=== PATIENT | female | born 1970 | race Hispanic/Latino ===

== ENCOUNTER 2016-11-10 21:05 | Emergency (ER) | payer SELFPAY ==
[2016-11-10 21:26] VITALS: BP 144/87; PULSE 64; RESP 20; TEMP 97.7; O2SAT 100
[2016-11-10] MEDS ORDERED: Iohexol 240 (50 ml) PO ONE (22:03)
--- NOTE | 2016-11-10 22:06 | ED PDOC ---
HPI: General Adult Time Seen by Provider: 11/10/16 21:54 Chief Complaint (Nursing): GI Problem Chief Complaint (Provider): dizziness, vomiting, abd pain History Per: Patient History/Exam Limitations: no limitations Onset/Duration Of Symptoms: Hrs Current Symptoms Are (Timing): Still Present Additional History Per: Patient Additional Complaint(s): 46 y/o female history of bipolar, fibromyaglia, migraine headaches and "fluid on the brain" presents with intermittent dizziness, nausea, and abdominal pain x 3 days. Associated vomiting x 1 today. Patient states [facility], and is unsure if this is related to the food she ate there vs her fibromyalgia vs her migraine headache flare up. She states she was told she had "water on the brain" in an emergency room in [place] in July, but never followed up with it. She notes dizziness present only with walking. Denies fever, neck pain, extremity numbness/weakness, chest pain, shortness of breath, palpitations, changes in bowel movements, urinary symptoms. Past Medical History Reviewed: Historical Data, Nursing Documentation Vital Signs: Last Vital Signs Temp 97.7 F 11/10/16 21:20 Pulse 64 11/10/16 21:20 Resp 20 11/10/16 21:20 BP 144/87 11/10/16 21:20 Pulse Ox 100 11/10/16 22:07 - Medical History PMH: Bipolar Disorder Other PMH: fibromyalgia - Family History Family History: States: Unknown Family Hx - Home Medications Home Medications: Ambulatory Orders Medication Instructions Recorded Ondansetron ODT [Zofran ODT] 4 mg PO Q8 PRN #10 odt 11/11/16 - Allergies Allergies/Adverse Reactions: Allergies Allergy/AdvReac Type Severity Reaction Status Date / Time haloperidol [From Haldol] AdvReac RASH Verified 11/10/16 21:23 Penicillins AdvReac RASH Verified 11/10/16 21:23 pseudoephedrine AdvReac RASH Verified 11/10/16 21:23 [From Sudafed] risperidone [From Risperdal] AdvReac RASH Verified 11/10/16 21:23 Review of Systems ROS Statement: Except As Marked, All Systems Reviewed And Found Negative Gastrointestinal: Positive for: Nausea, Vomiting, Abdominal Pain Neurological: Positive for: Dizziness Physical Exam - Reviewed Nursing Documentation Reviewed: Yes Vital Signs Reviewed: Yes - Physical Exam Appears: Positive for: Well, Non-toxic, No Acute Distress Head Exam: Positive for: ATRAUMATIC, NORMAL INSPECTION, NORMOCEPHALIC Eye Exam: Positive for: EOMI, PERRL, Nystagmus (horizontal) ENT: Positive for: Normal ENT Inspection Cardiovascular/Chest: Positive for: Regular Rate, Rhythm Respiratory: Positive for: Normal Breath Sounds Gastrointestinal/Abdominal: Positive for: Bowel Sounds, Soft, Tenderness ( diffuse) Back: Positive for: Normal Inspection Extremity: Positive for: Normal ROM Neurologic/Psych: Positive for: Alert, Oriented. Negative for: Motor/Sensory Deficits - Laboratory Results Result Diagrams: 11/10/16 22:57 11/10/16 22:57 - ECG O2 Sat by Pulse Oximetry: 100 - Progress ED Course And Treament: labs, urine, CT head, CT abd/pelvis, IV zofran, PO meclizine ordered EXAM: CT Abdomen and Pelvis With Intravenous Contrast CLINICAL HISTORY: 46 years old, female; Pain; Abdominal pain; Generalized; Additional info: Abd pain, vomiting TECHNIQUE: Axial computed tomography images of the abdomen and pelvis with intravenous contrast. This CT exam was performed using one or more of the following dose reduction techniques : automated exposure control, adjustment of the mA and/or kV according to patient size, and/ or use of iterative reconstruction technique. Coronal and sagittal reformatted images were created and reviewed. CONTRAST: 90 mL of [id number] administered intravenously. COMPARISON: No relevant prior studies available. FINDINGS: Limitations: Motion artifact - mild. Lower thorax: Minimal atelectasis. ABDOMEN: Liver: 1.5 x 1.4 x 1.5 cm enhancing lesion. Gallbladder and bile ducts: No calcified stones. No ductal dilation. Pancreas: No ductal dilation. No mass. Spleen: No splenomegaly. Adrenals: No mass. Kidneys and ureters: See below. Stomach and bowel: Underdistention of transverse colon. No definite mural thickening. No obstruction. Apparent mild mural thickening of few duodenal and jejunal loops. No associated inflammatory stranding. No obstruction. Appendix: Normal caliber. No inflammation. PELVIS: Bladder: Unremarkable. Reproductive: Unremarkable as visualized. ABDOMEN and PELVIS: Intraperitoneal space: No significant fluid collection. No free air. Bones/joints: No acute fracture. Soft tissues: Unremarkable. Vasculature: Circumaortic LEFT renal vein. No abdominal aortic aneurysm. Lymph nodes: No pathologically enlarged lymph nodes. IMPRESSION: 1. Possible mild enteritis. Clinical correlation is needed. 2. Liver lesion, indeterminate. Recommend nonemergent MRI. 3. Incidental/non-acute findings are described above. Addendum created by Rd Real MD on 11/11/2016 3:00 AM Eastern Time ([place] & [place]) THIS REPORT CONTAINS FINDINGS THAT MAY BE CRITICAL TO PATIENT CARE. The findings were verbally communicated via telephone conference with physician campus administrative assistant Ida Zhou PA-C at 3:00 AM EDT on 11/11/2016. The findings were acknowledged and understood. Initial Report created on 11/11/2016 2:56 AM Eastern Time ([place] & [place]) EXAM: CT Head Without Intravenous Contrast CLINICAL HISTORY: 46 years old, female; Signs and symptoms; Dizziness TECHNIQUE: Axial computed tomography images of the head/brain without intravenous contrast. This CT exam was performed using one or more of the following dose reduction techniques: automated exposure control, adjustment of the mA and/or kV according to patient size, and/or use of iterative reconstruction technique. Coronal and sagittal reformatted images were created and reviewed. COMPARISON: No relevant prior studies available. FINDINGS: Brain: Minimal atrophy. No intracranial hemorrhage. No mass. No definite edema. Ventricles: Moderately dilated out of proportion to sulci. Bones/joints: No acute fracture. Soft tissues: Unremarkable. Sinuses: No acute sinusitis. Mastoid air cells: No mastoid effusion. Orbits: Unremarkable as visualized. IMPRESSION: 1. Moderate hydrocephalus, uncertain chronicity. Compare with prior examinations if available. 2. Incidental/non-acute findings are described above. Case discussed with ED attending Dr. Acosta; who agrees with plan for outpatient neurology. Patient educated on findings, discharged with rx Zofran. Advised follow up neurology for hydrocephalus. Follow up PMD 2-3 days. Return to ED for worsening/concerning symptoms. Disposition - Clinical Impression Clinical Impression: Gastroenteritis, Hydrocephalus - Patient ED Disposition Is Patient to be Admitted: No Counseled Patient/Family Regarding: Studies Performed, Diagnosis, Need For Followup, Rx Given - Disposition Referrals: Aris Carranza MD [Medical Doctor] - [facility] [Outside] Disposition: Routine/Home Disposition Time: 03:07 Condition: IMPROVED Prescriptions: Ondansetron ODT [Zofran ODT] 4 mg PO Q8 PRN #10 odt PRN Reason: Nausea/Vomiting Instructions: Gastroenteritis (ED), Hydrocephalus (ED)
[2016-11-10] MEDS ORDERED: Iohexol 240 (50 ml) ONE (22:30)
[2016-11-10 22:48] LABS: RBC URINE 5 /hpf (0-3); URINE BACTERIA FEW (<OCC); URINE BILIRUBIN NEGATIVE (NEGATIVE); URINE BLOOD NEGATIVE (NEGATIVE); URINE COLOR YELLOW (YELLOW); URINE GLUCOSE (UA) NEG (Normal); URINE KETONE TRACE mg/dL (NEGATIVE); URINE LEUKOCYTE ESTERASE TRACE Leu/uL (Negative); URINE PROTEIN 30 mg/dL (NEGATIVE); URINE UROBILINOGEN 0.2-1.0 mg/dL (0.2-1.0); WBC URINE 2 /hpf (0-5)
[2016-11-10 23:02] LABS: BASO # 0.1 K/uL (0.0-0.2); BASO % 0.7 % (0.0-2.0); EOS # 0.3 K/uL (0.0-0.7); EOS % 3.4 % (0.0-4.0); HEMATOCRIT 32.5 % (34.0-47.0); LYMPH # 3.3 K/uL (1.0-4.3); MEAN CELL VOLUME 95.4 fl (81.0-99.0); MEAN CORPUSCULAR HEMOGLOBIN 31.7 pg (27.0-31.0); MEAN CORPUSCULAR HGB CONC 33.3 g/dL (33.0-37.0); MEAN PLATELET VOLUME 8.6 fl (7.2-11.7); MONO # 0.9 K/uL (0.0-0.8); MONO % 8.6 % (0.0-10.0); NEUT # 5.7 K/uL (1.8-7.0); NEUT % 55.3 % (50.0-75.0); RED CELL DISTRIBUTION WIDTH 13.3 % (11.5-14.5); WHITE BLOOD COUNT 10.3 K/uL (4.8-10.8)
[2016-11-10 23:12] LABS: ALB/GLOB RATIO 1.4 (1.0-2.1); BILIRUBIN,TOTAL 0.2 mg/dl (0.2-1.3); CALCIUM 9.2 mg/dL (8.4-10.2); POTASSIUM 4.1 MMOL/L (3.6-5.0); TOTAL PROTEIN 6.3 G/DL (6.3-8.2)
[2016-11-11] MEDS ORDERED: Iohexol 300 100 ML IJ ONE (02:23)
[2016-11-11] MEDS ORDERED: Sodium Chloride 0.9% 50 ML IV ONE (02:23)
--- NOTE | 2016-11-11 02:56 | CT ---
EXAM: CT Head Without Intravenous Contrast CLINICAL HISTORY: 46 years old, female; Signs and symptoms; Dizziness TECHNIQUE: Axial computed tomography images of the head/brain without intravenous contrast. This CT exam was performed using one or more of the following dose reduction techniques: automated exposure control, adjustment of the mA and/or kV according to patient size, and/or use of iterative reconstruction technique. Coronal and sagittal reformatted images were created and reviewed. COMPARISON: No relevant prior studies available. FINDINGS: Brain: Minimal atrophy. No intracranial hemorrhage. No mass. No definite edema. Ventricles: Moderately dilated out of proportion to sulci. Bones/joints: No acute fracture. Soft tissues: Unremarkable. Sinuses: No acute sinusitis. Mastoid air cells: No mastoid effusion. Orbits: Unremarkable as visualized. IMPRESSION: 1. Moderate hydrocephalus, uncertain chronicity. Compare with prior examinations if available. 2. Incidental/non-acute findings are described above.
--- NOTE | 2016-11-11 03:03 | CT ---
EXAM: CT Abdomen and Pelvis With Intravenous Contrast CLINICAL HISTORY: 46 years old, female; Pain; Abdominal pain; Generalized; Additional info: Abd pain, vomiting TECHNIQUE: Axial computed tomography images of the abdomen and pelvis with intravenous contrast. This CT exam was performed using one or more of the following dose reduction techniques: automated exposure control, adjustment of the mA and/or kV according to patient size, and/or use of iterative reconstruction technique. Coronal and sagittal reformatted images were created and reviewed. CONTRAST: 90 mL of [id number] administered intravenously. COMPARISON: No relevant prior studies available. FINDINGS: Limitations: Motion artifact - mild. Lower thorax: Minimal atelectasis. ABDOMEN: Liver: 1.5 x 1.4 x 1.5 cm enhancing lesion. Gallbladder and bile ducts: No calcified stones. No ductal dilation. Pancreas: No ductal dilation. No mass. Spleen: No splenomegaly. Adrenals: No mass. Kidneys and ureters: See below. Stomach and bowel: Underdistention of transverse colon. No definite mural thickening. No obstruction. Apparent mild mural thickening of few duodenal and jejunal loops. No associated inflammatory stranding. No obstruction. Appendix: Normal caliber. No inflammation. PELVIS: Bladder: Unremarkable. Reproductive: Unremarkable as visualized. ABDOMEN and PELVIS: Intraperitoneal space: No significant fluid collection. No free air. Bones/joints: No acute fracture. Soft tissues: Unremarkable. Vasculature: Circumaortic LEFT renal vein. No abdominal aortic aneurysm. Lymph nodes: No pathologically enlarged lymph nodes. IMPRESSION: 1. Possible mild enteritis. Clinical correlation is needed. 2. Liver lesion, indeterminate. Recommend nonemergent MRI. 3. Incidental/non-acute findings are described above.
== END 2016-11-11 04:15 | disposition home or self-care (01) ==
LOC: H.ER 21:05
DX: K52.9 Noninfective gastroenteritis and colitis, unspecified (principal); R42 Dizziness and giddiness; F31.9 Bipolar disorder, unspecified; M79.7 Fibromyalgia; Z88.0 Allergy status to penicillin; R10.9 Unspecified abdominal pain; G91.9 Hydrocephalus, unspecified; K76.89 Other specified diseases of liver
CPT/HCPCS: 70450; 74177; 80053; 81003; 81025; 83690; 85025; 96374; 99283; J2405; Q9966; Q9967

== ENCOUNTER 2016-11-23 21:21 | Emergency (ER) | payer SELFPAY ==
[2016-11-23 21:28] VITALS: RESP 16
--- NOTE | 2016-11-23 22:26 | ED PDOC ---
HPI: General Adult Time Seen by Provider: 11/23/16 22:03 Chief Complaint (Nursing): Abdominal Pain Chief Complaint (Provider): cough, abdominal pain History Per: Patient History/Exam Limitations: no limitations Onset/Duration Of Symptoms: Days (2 weeks), Waxing/Waning Current Symptoms Are (Timing): Still Present Additional History Per: Patient Additional Complaint(s): 46 y/o nondomiciled female presents with cough, congestion x 2 weeks. Patient states she was seen at [facility] and had xray and was prescirbed Zpak but she is not able to take Zpak due to adverse side effects, and that children's amoxicillin is the only thing that works for her. Patient also notes intermittent generalized abdominal cramping with diarrhea x weeks, which patient describes as "her normal", and that it is usually relieved with Pepto bismol. Denies fever, nausea/vomiting, chest pain, shortness of breath, palpitations, recent travel, sick contacts. Past Medical History Reviewed: Historical Data, Nursing Documentation, Vital Signs Vital Signs: Last Vital Signs Temp 98.6 F 11/24/16 01:45 Pulse 79 11/24/16 01:45 Resp 16 11/24/16 01:45 BP 122/78 11/24/16 01:45 Pulse Ox 98 11/24/16 01:45 - Medical History PMH: Bipolar Disorder, Fibromyalgia - Surgical History Surgical History: No Surg Hx - Family History Family History: States: Unknown Family Hx - Living Arrangements Living Arrangements: Alone - Home Medications Home Medications: Ambulatory Orders Medication Instructions Recorded Ondansetron ODT [Zofran ODT] 4 mg PO Q8 PRN #10 odt 11/11/16 Levofloxacin [Levaquin] 500 mg PO DAILY #7 tablet 11/24/16 - Allergies Allergies/Adverse Reactions: Allergies Allergy/AdvReac Type Severity Reaction Status Date / Time azithromycin Allergy RASH Verified 11/23/16 21:24 haloperidol [From Haldol] AdvReac RASH Verified 11/10/16 21:23 Penicillins AdvReac RASH Verified 11/10/16 21:23 pseudoephedrine AdvReac RASH Verified 11/10/16 21:23 [From Sudafed] risperidone [From Risperdal] AdvReac RASH Verified 11/10/16 21:23 Review of Systems ROS Statement: Except As Marked, All Systems Reviewed And Found Negative ENT: Positive for: Nose Congestion Respiratory: Positive for: Cough Gastrointestinal: Positive for: Diarrhea Physical Exam - Reviewed Nursing Documentation Reviewed: Yes Vital Signs Reviewed: Yes - Physical Exam Appears: Positive for: Well, Non-toxic, No Acute Distress Head Exam: Positive for: ATRAUMATIC, NORMAL INSPECTION, NORMOCEPHALIC Skin: Positive for: Normal Color Eye Exam: Positive for: Normal appearance ENT: Positive for: Nasal Congestion Cardiovascular/Chest: Positive for: Regular Rate, Rhythm Respiratory: Positive for: Normal Breath Sounds Gastrointestinal/Abdominal: Positive for: Normal Exam, Bowel Sounds, Soft Back: Positive for: Normal Inspection Extremity: Positive for: Normal ROM Neurologic/Psych: Positive for: Alert, Oriented - Laboratory Results Result Diagrams: 11/23/16 22:30 11/23/16 22:30 - ECG O2 Sat by Pulse Oximetry: 100 - Radiology X-Ray: Viewed By Ms X-Ray Interpretation: No Acute Disease - Progress ED Course And Treament: labs, urine, pepto bismul, chest xray Patient educated on findings, plan to discharged with rx Levaquin. Patient states she only wants liquid Amoxicillin. Patient advised that Amox not indicated for current diagnosis. Follow up PMD 2-3 days. Return to ED for worsening/concerning symptoms. Disposition - Clinical Impression Clinical Impression: UTI (urinary tract infection), Bronchitis - Patient ED Disposition Is Patient to be Admitted: No Counseled Patient/Family Regarding: Studies Performed, Diagnosis, Need For Followup, Rx Given - Disposition Referrals: [facility] [Outside] Disposition: Routine/Home Disposition Time: 01:12 Condition: IMPROVED Prescriptions: Levofloxacin [Levaquin] 500 mg PO DAILY #7 tablet Instructions: Urinary Tract Infection in Women (ED), Acute Bronchitis (ED)
[2016-11-23 22:49] LABS: ALB/GLOB RATIO 1.2 (1.0-2.1); ALKALINE PHOSPHATASE 64 U/L (38-126); ALT/SGPT 29 U/L (9-52); AST/SGOT 32 U/L (14-36); BASO # 0.1 K/uL (0.0-0.2); BASO % 0.7 % (0.0-2.0); BILIRUBIN,TOTAL 0.2 mg/dl (0.2-1.3); BLOOD UREA NITROGEN 13 mg/dl (7-17); CALCIUM 8.9 mg/dL (8.4-10.2); CARBON DIOXIDE 26 mmol/L (22-30); CHLORIDE 105 mmol/L (98-107); EOS # 0.1 K/uL (0.0-0.7); EOS % 0.9 % (0.0-4.0); GFR AFRICAN-AMERICAN > 60; GLUCOSE,RANDOM 110 mg/dL (65-105); HEMATOCRIT 30.9 % (34.0-47.0); LYMPH # 3.1 K/uL (1.0-4.3); LYMPH % 26.4 % (20.0-40.0); MEAN CORPUSCULAR HEMOGLOBIN 31.2 pg (27.0-31.0); MEAN CORPUSCULAR HGB CONC 32.8 g/dL (33.0-37.0); MEAN PLATELET VOLUME 8.4 fl (7.2-11.7); MONO % 16.9 % (0.0-10.0); NEUT # 6.4 K/uL (1.8-7.0); NEUT % 55.1 % (50.0-75.0); POTASSIUM 4.5 MMOL/L (3.6-5.0); RED CELL DISTRIBUTION WIDTH 13.1 % (11.5-14.5); SODIUM 140 mmol/l (132-148); TOTAL PROTEIN 6.7 G/DL (6.3-8.2); WHITE BLOOD COUNT 11.7 K/uL (4.8-10.8)
[2016-11-23] MEDS ORDERED: Bismuth Subsalicylate 262 mg/15 ml Sus (240 ml) ONE (22:52)
[2016-11-23] MEDS: Bismuth Subsalicylate 262 mg Chew Tab PO STA (23:05)
[2016-11-23 23:53] LABS: RBC URINE 4 /hpf (0-3); URINE BACTERIA OCC (<OCC); URINE BILIRUBIN NEGATIVE (NEGATIVE); URINE BLOOD NEGATIVE (NEGATIVE); URINE COLOR YELLOW (YELLOW); URINE GLUCOSE (UA) NEG (Normal); URINE KETONE TRACE mg/dL (NEGATIVE); URINE LEUKOCYTE ESTERASE LARGE Leu/uL (Negative); URINE PROTEIN NEGATIVE (NEGATIVE); WBC URINE 23 /hpf (0-5)
[2016-11-24 04:15] VITALS: BP 122/78; PULSE 79; TEMP 98.6
[2016-11-24 04:59] VITALS: O2SAT 100
--- NOTE | 2016-11-24 10:20 | RAD ---
HISTORY: cough COMPARISON: No prior. FINDINGS: LUNGS: Vague somewhat triangular-shaped opacity seen in the right medial lung base that could represent some atelectasis however of lower lobe infiltrate could be excluded with followup radiographs. . PLEURA: No significant pleural effusion identified, no pneumothorax apparent. CARDIOVASCULAR: Normal. OSSEOUS STRUCTURES: No significant abnormalities. VISUALIZED UPPER ABDOMEN: Normal. OTHER FINDINGS: None. IMPRESSION: Vague somewhat triangular-shaped opacity seen in the right medial lung base that could represent some atelectasis however of lower lobe infiltrate could be excluded with followup radiographs. .
== END 2016-11-24 01:45 | disposition home or self-care (01) ==
LOC: H.ER 21:21
DX: J40 Bronchitis, not specified as acute or chronic (principal); N39.0 Urinary tract infection, site not specified; R05 Cough

== ENCOUNTER 2016-12-31 14:37 | Emergency (ER) | payer MEDICAID ==
[2016-12-31 14:47] VITALS: O2SAT 98
[2016-12-31 16:05] LABS: BASO # 0.1 K/uL (0.0-0.2); BASO % 0.9 % (0.0-2.0); EOS # 0.6 K/uL (0.0-0.7); EOS % 7.6 % (0.0-4.0); HEMOGLOBIN 10.5 g/dL (12.0-16.0); LYMPH # 2.4 K/uL (1.0-4.3); MEAN CELL VOLUME 95.7 fl (81.0-99.0); MEAN CORPUSCULAR HEMOGLOBIN 31.5 pg (27.0-31.0); MEAN CORPUSCULAR HGB CONC 32.9 g/dL (33.0-37.0); MONO # 0.8 K/uL (0.0-0.8); MONO % 10.6 % (0.0-10.0); NEUT # 3.5 K/uL (1.8-7.0); NEUT % 47.9 % (50.0-75.0); RBC 3.35 Mil/uL (3.80-5.20); RED CELL DISTRIBUTION WIDTH 14.1 % (11.5-14.5); WHITE BLOOD COUNT 7.4 K/uL (4.8-10.8)
--- NOTE | 2016-12-31 16:34 | ED PDOC ---
HPI: Chest Pain Time Seen by Provider: 12/31/16 15:04 Chief Complaint (Nursing): Chest Pain Chief Complaint (Provider): Chest Pain History Per: Patient History/Exam Limitations: no limitations Onset/Duration Of Symptoms: Days (x3 days) Current Symptoms Are (Timing): Still Present Additional Complaint(s): 46 y/o female with a past medical history of bipolar disorder, fibromyalgia, rheumatoid arthritis and "water in the brain" who presents to the emergency department with a complaint of a constant right-sided chest pain that worsens with deep breaths about 30 minutes prior to arrival while at rest. Associated with shortness of breath, paresthesia to the right arm, and intermittent chronic headache. Reports a dry cough, and runny nose ongoing x3 days. Patient states it maybe a panic attack but feels worse than a usual panic attack. Denies focal weakness, blurry vision, change in headache, fever, leg swelling, immobilizations, or recent surgeries. Of note, patient says she has a history of "water in the brain" after a head CT scan was done due to frequent complaints of headache around October of this year in an emergency department in [place]. Patient was told she needed emergent surgery but refused. One month later in November, patient continued to experience headaches and had another Head CT completed in a different hospital in [place] and was told again the same results but refused to have surgery. PMD: None Past Medical History Reviewed: Historical Data, Nursing Documentation, Vital Signs Vital Signs: Last Vital Signs Temp 98.0 F 12/31/16 18:00 Pulse 75 12/31/16 18:00 Resp 16 12/31/16 18:00 BP 122/68 12/31/16 18:00 Pulse Ox 98 12/31/16 19:26 - Medical History PMH: Arthritis (Rheumatoid), Bipolar Disorder, Fibromyalgia Other PMH: "Water in the brain" (After severel Head CT in different hospitals) - Surgical History Surgical History: No Surg Hx - Family History Family History: States: Diabetes, Hypertension - Social History Current smoker - smoking cessation education provided: Yes (Heavy Smoker >10 Cigarettes Daily) Alcohol: None Drugs: Denies - Home Medications Home Medications: Ambulatory Orders Medication Instructions Recorded Ondansetron ODT [Zofran ODT] 4 mg PO Q8 PRN #10 odt 11/11/16 Levofloxacin [Levaquin] 500 mg PO DAILY #7 tablet 11/24/16 Cyclobenzaprine [Flexeril] 5 mg PO Q8 PRN #10 tab 12/31/16 Naproxen [Naprosyn] 1 tab PO BID PRN #60 tab 12/31/16 - Allergies Allergies/Adverse Reactions: Allergies Allergy/AdvReac Type Severity Reaction Status Date / Time azithromycin Allergy RASH Verified 11/23/16 21:24 haloperidol [From Haldol] AdvReac RASH Verified 11/10/16 21:23 Penicillins AdvReac RASH Verified 11/10/16 21:23 pseudoephedrine AdvReac RASH Verified 11/10/16 21:23 [From Sudafed] risperidone [From Risperdal] AdvReac RASH Verified 11/10/16 21:23 Review of Systems ROS Statement: Except As Marked, All Systems Reviewed And Found Negative Constitutional: Negative for: Fever Eyes: Negative for: Vision Change ENT: Positive for: Nose Discharge Cardiovascular: Positive for: Chest Pain (Right-sided) Respiratory: Positive for: Cough (Dry), Shortness of Breath Musculoskeletal: Positive for: Arm Pain (Paresthesia to the right arm). Negative for: Leg Pain (swelling or immobilizations of the legs bilaterally) Neurological: Positive for: Headache (Chronic intermittent headache; denies change in headache). Negative for: Weakness (Focal) Physical Exam - Reviewed Nursing Documentation Reviewed: Yes Vital Signs Reviewed: Yes - Physical Exam Appears: Positive for: Well, Non-toxic, No Acute Distress Head Exam: Positive for: ATRAUMATIC, NORMAL INSPECTION, NORMOCEPHALIC Skin: Positive for: Normal Color, Warm, Dry Eye Exam: Positive for: Normal appearance. Negative for: Conjunctival injection ENT: Positive for: Normal ENT Inspection. Negative for: Pharyngeal Erythema Neck: Positive for: Normal, Supple Cardiovascular/Chest: Positive for: Regular Rate, Rhythm, Other (Chest wall tenderness to the right anterior chest wall with no crepitus. No step off. ). Negative for: Chest Non Tender, Murmur Respiratory: Positive for: Normal Breath Sounds. Negative for: Accessory Muscle Use, Respiratory Distress Gastrointestinal/Abdominal: Positive for: Normal Exam, Soft. Negative for: Tenderness Extremity: Positive for: Normal ROM. Negative for: Pedal Edema Neurologic/Psych: Positive for: Alert, Oriented, Other (Speaking in full sentences.) - Laboratory Results Result Diagrams: 12/31/16 15:50 12/31/16 15:50 - ECG O2 Sat by Pulse Oximetry: 98 (RA) Pulse Ox Interpretation: Normal Medical Decision Making Medical Decision Making: Time: 15:25 Initial impression: Chest pain Initial plan: --Alcohol Serum STAT --B-Type Natriuretic Peptide --COMP Metabolic Panel --Drug Screen, Urine --Troponin I Stat --Valproic Acid STAT --ED Urine Dipstick (POC) --CBC w/ differential --D Dimer (COAG) --Chest Two Views (RAD) --Cyclobenzaprine 10 mg PO --Toradol 15 mg IV --Blood Culture STAT --IV Insertion CXR No acute findings, No inf/eff No clinically significant lab abnormalities Pt feeling better on reeval 7p. DW pt findings and plan of care. Stable for dc. Scribe Attestation: Documented by Guillermina Kerr, acting as a scribe for Amarilis Carbajal MD. Provider Scribe Attestation: All medical record entries made by the Scribe were at my direction and personally dictated by me. I have reviewed the chart and agree that the record accurately reflects my personal performance of the history, physical exam, medical decision making, and the department course for this patient. I have also personally directed, reviewed, and agree with the discharge instructions and disposition. Disposition - Clinical Impression Clinical Impression: Chest pain - Disposition Referrals: [facility] [Outside] - 01/03/17 Disposition: Routine/Home Disposition Time: 19:01 Condition: GOOD Prescriptions: Cyclobenzaprine [Flexeril] 5 mg PO Q8 PRN #10 tab PRN Reason: muscle spasm Naproxen [Naprosyn] 1 tab PO BID PRN #60 tab PRN Reason: Pain Instructions: Chest Pain (ED)
[2016-12-31 16:38] LABS: ALB/GLOB RATIO 1.4 (1.0-2.1); ALBUMIN 3.7 g/dL (3.5-5.0); ALT/SGPT 25 U/L (9-52); AST/SGOT 17 U/L (14-36); BLOOD UREA NITROGEN 15 mg/dl (7-17); GFR AFRICAN-AMERICAN > 60; GFR NON-AFRICAN AMERICAN > 60
[2016-12-31 16:47] LABS: B-TYPE NATRIURETIC PEPTIDE 39.6 pg/ml (0-450)
--- NOTE | 2016-12-31 18:54 | RAD ---
HISTORY: cp sob COMPARISON: 11/23/2016 TECHNIQUE: Chest PA and lateral FINDINGS: LUNGS: No active pulmonary disease. PLEURA: No significant pleural effusion identified. No pneumothorax apparent. CARDIOVASCULAR: Normal. OSSEOUS STRUCTURES: No significant abnormalities. VISUALIZED UPPER ABDOMEN: Normal. OTHER FINDINGS: None. IMPRESSION: No active disease.
[2016-12-31 19:21] VITALS: BP 122/68; PULSE 75; RESP 16; TEMP 98
--- NOTE | 2017-01-06 06:33 | CARD ---
APPROVED REPORT EKG Measurement Heart [id number] <Conclusion> Normal sinus rhythm Septal infarct, age undetermined Abnormal ECG
== END 2016-12-31 19:21 | disposition home or self-care (01) ==
LOC: H.ER 14:37
DX: R07.89 Other chest pain (principal); F31.9 Bipolar disorder, unspecified; M79.7 Fibromyalgia; Z88.0 Allergy status to penicillin

== ENCOUNTER 2016-12-31 19:39 | Emergency (ER) | payer MEDICAID ==
[2016-12-31 19:55] VITALS: BP 100/60; PULSE 73; RESP 16; TEMP 98; O2SAT 97
--- NOTE | 2016-12-31 20:04 | ED PDOC ---
HPI: Psych/Substance Abuse Time Seen by Provider: 12/31/16 19:57 Chief Complaint (Nursing): Anxiety Chief Complaint (Provider): anxiety History Per: Patient History/Exam Limitations: no limitations Onset/Duration Of Symptoms: Days (2) Associated Symptoms: denies: Paranoia, Suicidal Thoughts, Suicidal Plan, Other ( hallucinations) Additional Complaint(s): Pt was just seen by me for chest pain and discharged. She is now reporting that she is very anxious and feels the need to be admitted for this. She is also requesting a hot meal, despite being given a sandwich at prior visit. No homicidal or suicidal ideation. No hallucinations. Past Medical History Reviewed: Historical Data, Nursing Documentation, Vital Signs Vital Signs: Last Vital Signs Temp 98 F 12/31/16 19:52 Pulse 73 12/31/16 19:52 Resp 16 12/31/16 19:52 BP 100/60 12/31/16 19:52 Pulse Ox 97 12/31/16 19:52 - Medical History PMH: Arthritis (Rheumatoid), Bipolar Disorder, Fibromyalgia - Family History Family History: States: Unknown Family Hx, Diabetes, Hypertension - Living Arrangements Living Arrangements: Other (Undomiciled) - Home Medications Home Medications: Ambulatory Orders Medication Instructions Recorded Ondansetron ODT [Zofran ODT] 4 mg PO Q8 PRN #10 odt 11/11/16 Levofloxacin [Levaquin] 500 mg PO DAILY #7 tablet 11/24/16 Cyclobenzaprine [Flexeril] 5 mg PO Q8 PRN #10 tab 12/31/16 Naproxen [Naprosyn] 1 tab PO BID PRN #60 tab 12/31/16 - Allergies Allergies/Adverse Reactions: Allergies Allergy/AdvReac Type Severity Reaction Status Date / Time azithromycin Allergy RASH Verified 11/23/16 21:24 haloperidol [From Haldol] AdvReac RASH Verified 11/10/16 21:23 Penicillins AdvReac RASH Verified 11/10/16 21:23 pseudoephedrine AdvReac RASH Verified 11/10/16 21:23 [From Sudafed] risperidone [From Risperdal] AdvReac RASH Verified 11/10/16 21:23 Review of Systems ROS Statement: Except As Marked, All Systems Reviewed And Found Negative (and as per HPI) Psych: Positive for: Anxiety. Negative for: Depression, Psychosis, Suicidal ideation, Withdrawal Physical Exam - Reviewed Nursing Documentation Reviewed: Yes Vital Signs Reviewed: Yes - Physical Exam Appears: Positive for: Non-toxic, No Acute Distress Head Exam: Positive for: ATRAUMATIC, NORMOCEPHALIC Skin: Positive for: Warm, Dry Eye Exam: Positive for: EOMI, PERRL ENT: Positive for: Normal ENT Inspection Neck: Positive for: Painless ROM, Supple Cardiovascular/Chest: Positive for: Regular Rate, Rhythm. Negative for: Murmur Respiratory: Positive for: Normal Breath Sounds. Negative for: Respiratory Distress Gastrointestinal/Abdominal: Positive for: Soft. Negative for: Tenderness Back: Positive for: Normal Inspection. Negative for: Vertebral Tenderness Extremity: Positive for: Normal ROM. Negative for: Deformity Lymphatic: Negative for: Adenopathy Neurologic/Psych: Positive for: Alert, Oriented (x3). Negative for: Motor/ Sensory Deficits, Aphasia - ECG O2 Sat by Pulse Oximetry: 97 - Progress ED Course And Treament: Evaluated by crisis in ER and stable for dc with f/u [facility] Disposition - Clinical Impression Clinical Impression: Anxiety Counseled Patient/Family Regarding: Studies Performed, Diagnosis - Disposition Referrals: [facility] [Outside] [facility] [Outside] Disposition: Routine/Home Disposition Time: 20:54 Condition: GOOD Instructions: Anxiety (ED)
== END 2016-12-31 21:05 | disposition home or self-care (01) ==
LOC: H.ER 19:39
DX: F41.9 Anxiety disorder, unspecified (principal); F31.9 Bipolar disorder, unspecified

== ENCOUNTER 2017-01-12 08:24 | Observation (INO) | payer MEDICAID ==
[2017-01-12 08:27] VITALS: TEMP 98
--- NOTE | 2017-01-12 09:03 | ED PDOC ---
HPI: Psych/Substance Abuse Time Seen by Provider: 01/12/17 08:25 Chief Complaint (Nursing): Psychiatric Evaluation Chief Complaint (Provider): Psychiatric Evaluation History Per: EMS History/Exam Limitations: no limitations Current Symptoms Are (Timing): Still Present Additional Complaint(s): Krystal Babin is a 46 year old female with a history of anxiety, bipolar disorder, rheumatoid arthritis, and fibromyalgia that was brought to the ED via EMS [place] a desire [place]. Patient was last seen in ED on 12/31/16. She is currently refusing to answer any questions. Past Medical History Reviewed: Historical Data (obtained from prior records), Nursing Documentation, Vital Signs Vital Signs: Last Vital Signs Temp 98 F 01/12/17 08:29 Pulse 78 01/12/17 08:29 Resp 20 01/12/17 08:29 BP 120/70 01/12/17 08:29 Pulse Ox 98 01/12/17 08:29 - Medical History PMH: Arthritis (Rheumatoid), Bipolar Disorder, Fibromyalgia Denies: Diabetes, Hepatitis, HIV, HTN, Chronic Kidney Disease, Seizures, Sexually Transmitted Disease - Surgical History Surgical History: No Surg Hx - Family History Family History: States: Unknown Family Hx, Diabetes, Hypertension - Social History Current smoker - smoking cessation education provided: Yes (smokes 10 cigarettes per day) Alcohol: None Drugs: Denies - Home Medications Home Medications: Ambulatory Orders Medication Instructions Recorded Ondansetron ODT [Zofran ODT] 4 mg PO Q8 PRN #10 odt 11/11/16 Levofloxacin [Levaquin] 500 mg PO DAILY #7 tablet 11/24/16 Cyclobenzaprine [Flexeril] 5 mg PO Q8 PRN #10 tab 12/31/16 Naproxen [Naprosyn] 1 tab PO BID PRN #60 tab 12/31/16 - Allergies Allergies/Adverse Reactions: Allergies Allergy/AdvReac Type Severity Reaction Status Date / Time azithromycin Allergy RASH Verified 01/12/17 08:28 haloperidol [From Haldol] AdvReac RASH Verified 01/12/17 08:28 Penicillins AdvReac RASH Verified 01/12/17 08:28 pseudoephedrine AdvReac RASH Verified 01/12/17 08:28 [From Sudafed] risperidone [From Risperdal] AdvReac RASH Verified 01/12/17 08:28 Review of Systems Review Of Systems: ROS cannot be obtained secondary to pt's inabilty to answer questions. (Patient is refusing to answer questions.) Physical Exam - Reviewed Nursing Documentation Reviewed: Yes Vital Signs Reviewed: Yes - Physical Exam Appears: Positive for: Non-toxic, Uncomfortable (Patient is very agitated.) Head Exam: Positive for: ATRAUMATIC, NORMOCEPHALIC Skin: Positive for: Normal Color, Warm Cardiovascular/Chest: Positive for: Regular Rate, Rhythm. Negative for: Murmur Respiratory: Positive for: Normal Breath Sounds. Negative for: Wheezing Gastrointestinal/Abdominal: Positive for: Soft Neurologic/Psych: Positive for: Alert. Negative for: Motor/Sensory Deficits - Laboratory Results Result Diagrams: 01/12/17 09:10 01/12/17 09:10 - ECG O2 Sat by Pulse Oximetry: 98 (RA) Pulse Ox Interpretation: Normal Medical Decision Making Medical Decision Making: Impression: Psychiatric Evaluation Plan: * EKG * Acetaminophen * CMP * CBC * Urine Drug Screen * Urine * Urinalysis * Salicylate * Alcohol Serum * ED Obs Patient came to ED highly agitated, and became very aggressive with staff and attempted to elope. Was put in four point restraints and given 2 mg Ativan in order to alleviate agitation. once pt less agitated, restraints removed Scribe Attestation: Documented by Nadine Colunga, acting as a scribe for Ene Roberson MD. Provider Scribe Attestation: All medical record entries made by the Scribe were at my direction and personally dictated by me. I have reviewed the chart and agree that the record accurately reflects my personal performance of the history, physical exam, medical decision making, and the department course for this patient. I have also personally directed, reviewed, and agree with the discharge instructions and disposition. ED OBSERVATION Date of observation admission: 01/12/17 Time of observation admission: 08:56 - Observation admission statement Patient is being placed in observation because:: need for serial examinations to determine stability for disposition - Goals of Observation Goals of observation are:: psychiatric stabilization. - Progress Note Progress Note: 01/12/17 08:56 Patient is currently in four point restraints and was given 2 mg Ativan in order to alleviate agitation. 01/12/17 10:30 Patient is stable, waiting to be medically cleared. 01/12/17 12:05 Patient is stable, waiting to be medically cleared. 01/12/17 13:40 Patient is stable, waiting to be medically cleared. 01/12/17 15:14 Ordered Hurt catheter. 01/12/17 15:50 Patient was medically cleared and then had crisis evaluation. Patient is stable for discharge home as per Dr zavala the psychiatrist teacher emotionally impaired Clinical Impression: Adjustment Disorder 01/13/17 23:14 Disposition - Clinical Impression Clinical Impression: Adjustment disorder - Patient ED Disposition Is Patient to be Admitted: No Counseled Patient/Family Regarding: Studies Performed, Diagnosis, Need For Followup - Disposition Disposition: Routine/Home Disposition Time: 15:50 Condition: STABLE
[2017-01-12 09:30] LABS: BASO # 0.1 K/uL (0.0-0.2); BASO % 1.1 % (0.0-2.0); EOS # 0.5 K/uL (0.0-0.7); EOS % 5.1 % (0.0-4.0); LYMPH # 3.3 K/uL (1.0-4.3); LYMPH % 35.9 % (20.0-40.0); MEAN CELL VOLUME 93.5 fl (81.0-99.0); MEAN CORPUSCULAR HEMOGLOBIN 31.8 pg (27.0-31.0); MEAN PLATELET VOLUME 8.4 fl (7.2-11.7); MONO # 0.8 K/uL (0.0-0.8); MONO % 8.9 % (0.0-10.0); NEUT # 4.6 K/uL (1.8-7.0); NRBC % 0.1 % (0.0-0.0); RBC 3.79 Mil/uL (3.80-5.20); RED CELL DISTRIBUTION WIDTH 13.6 % (11.5-14.5); WHITE BLOOD COUNT 9.3 K/uL (4.8-10.8)
[2017-01-12 09:54] LABS: ALB/GLOB RATIO 1.4 (1.0-2.1); ALBUMIN 4.2 g/dL (3.5-5.0); ALT/SGPT 30 U/L (9-52); AST/SGOT 34 U/L (14-36); BLOOD UREA NITROGEN 13 mg/dl (7-17); CALCIUM 9.2 mg/dL (8.4-10.2); GFR AFRICAN-AMERICAN > 60; GFR NON-AFRICAN AMERICAN > 60; SALICYLATE < 1.0 mg/dl
[2017-01-12 09:58] LABS: ACETAMINOPHEN < 10.0 ug/ml (10.0-30.0)
[2017-01-12 15:04] LABS: URINE BILIRUBIN NEGATIVE (NEGATIVE); URINE BLOOD NEGATIVE (NEGATIVE); URINE CLARITY CLEAR (Clear); URINE COLOR STRAW (YELLOW); URINE GLUCOSE (UA) NEG (Normal); URINE LEUKOCYTE ESTERASE NEG Leu/uL (Negative); URINE NITRATE NEGATIVE (NEGATIVE); URINE PROTEIN NEGATIVE (NEGATIVE); URINE UROBILINOGEN 0.2-1.0 mg/dL (0.2-1.0)
[2017-01-12 15:29] LABS: BARBITURATES, UR NEGATIVE (NEGATIVE); BENZODIAZEPINES, UR NEGATIVE (NEGATIVE); OPIATES, UR NEGATIVE (NEGATIVE); PHENCYCLIDINE, UR NEGATIVE (NEGATIVE)
--- NOTE | 2017-01-12 15:35 | CARD ---
APPROVED REPORT EKG Measurement Heart [id number] <Conclusion> Normal sinus rhythm Septal infarct, age undetermined Abnormal ECG
[2017-01-12 16:31] VITALS: BP 122/70; PULSE 84; RESP 16
[2017-01-13 23:14] VITALS: O2SAT 98
== END 2017-01-12 16:05 | disposition home or self-care (01) ==
LOC: H.ER 08:24 → H.EROBSV 08:56
PROVIDERS: ADMIT Emergency Medicine; ATTEND Emergency Medicine
DX: F43.20 Adjustment disorder, unspecified (principal); F17.210 Nicotine dependence, cigarettes, uncomplicated; F31.9 Bipolar disorder, unspecified; M06.9 Rheumatoid arthritis, unspecified; M79.7 Fibromyalgia; F41.9 Anxiety disorder, unspecified

== ENCOUNTER 2017-05-04 02:31 | Emergency (ER) | payer MEDICAID ==
[2017-05-04 02:47] VITALS: RESP 16; O2SAT 98
[2017-05-04] MEDS ORDERED: Sodium Chloride 0.9% 1,000 ML IV STA (03:07)
[2017-05-04 03:30] LABS: BASO # 0.1 K/uL (0.0-0.2); BASO % 1.1 % (0.0-2.0); EOS # 0.2 K/uL (0.0-0.7); EOS % 1.5 % (0.0-4.0); HEMATOCRIT 37.4 % (34.0-47.0); LYMPH # 3.4 K/uL (1.0-4.3); LYMPH % 30.2 % (20.0-40.0); MEAN CELL VOLUME 91.5 fl (81.0-99.0); MEAN CORPUSCULAR HGB CONC 33.9 g/dL (33.0-37.0); MEAN PLATELET VOLUME 8.3 fl (7.2-11.7); MONO # 0.9 K/uL (0.0-0.8); MONO % 8.2 % (0.0-10.0); NEUT # 6.7 K/uL (1.8-7.0); NRBC % 0.1 % (0.0-0.0); RED CELL DISTRIBUTION WIDTH 13.3 % (11.5-14.5); WHITE BLOOD COUNT 11.4 K/uL (4.8-10.8)
[2017-05-04 03:33] LABS: ALB/GLOB RATIO 1.2 (1.0-2.1); ALKALINE PHOSPHATASE 105 U/L (38-126); ALT/SGPT 33 U/L (9-52); AST/SGOT 20 U/L (14-36); BILIRUBIN,TOTAL 0.4 mg/dl (0.2-1.3); BLOOD UREA NITROGEN 16 mg/dl (7-17); CALCIUM 9.1 mg/dL (8.4-10.2); CARBON DIOXIDE 23 mmol/L (22-30); CHLORIDE 102 mmol/L (98-107); GFR AFRICAN-AMERICAN > 60; GLUCOSE,RANDOM 96 mg/dL (65-105); POTASSIUM 3.5 MMOL/L (3.6-5.0); SODIUM 136 mmol/l (132-148); TOTAL PROTEIN 7.3 G/DL (6.3-8.2)
[2017-05-04 04:05] LABS: URINE BILIRUBIN NEGATIVE (NEGATIVE); URINE COLOR YELLOW (YELLOW); URINE GLUCOSE (UA) NEGATIVE (Normal)
[2017-05-04 04:06] LABS: URINE BLOOD NEGATIVE (NEGATIVE); URINE KETONE 20 mg/dL (NEGATIVE); URINE LEUKOCYTE ESTERASE NEGATIVE Leu/uL (Negative); URINE PROTEIN 30 mg/dL (NEGATIVE); URINE UROBILINOGEN 0.2 mg/dL (0.2-1.0)
--- NOTE | 2017-05-04 04:06 | ED PDOC ---
HPI:Nausea, Vomiting, Diarrhea Time Seen by Provider: 05/04/17 02:45 Chief Complaint (Nursing): GI Problem Chief Complaint (Provider): Nausea History Per: Patient History/Exam Limitations: no limitations Onset/Duration Of Symptoms: Days (x 2) Additional Complaint(s): Krystal is a 47 y/o female with a history of anxiety, bipolar disorder, rheumatoid arthritis, and fibroyalgia presents to the ED complaining of nausea for the past few days. She denies vomiting, fever, or diarrhea. Patient has a history of alcoholism but denies recent ingestion. PMD: None Provided Past Medical History Reviewed: Historical Data, Nursing Documentation, Vital Signs Vital Signs: Last Vital Signs Temp 98.6 F 05/04/17 02:44 Pulse 84 05/04/17 02:44 Resp 16 05/04/17 02:44 BP 112/81 05/04/17 02:44 Pulse Ox 98 05/04/17 02:44 - Medical History PMH: Anxiety, Arthritis (Rheumatoid), Bipolar Disorder, Fibromyalgia Denies: Diabetes, Hepatitis, HIV, HTN, Chronic Kidney Disease, Seizures, Sexually Transmitted Disease - Surgical History Surgical History: No Surg Hx - Family History Family History: States: Unknown Family Hx, Diabetes, Hypertension - Social History Current smoker - smoking cessation education provided: Yes (10 cigarettes/day) - Home Medications Home Medications: Ambulatory Orders Medication Instructions Recorded Ondansetron ODT [Zofran ODT] 4 mg PO Q8 PRN #10 odt 11/11/16 Levofloxacin [Levaquin] 500 mg PO DAILY #7 tablet 11/24/16 Cyclobenzaprine [Flexeril] 5 mg PO Q8 PRN #10 tab 12/31/16 Naproxen [Naprosyn] 1 tab PO BID PRN #60 tab 12/31/16 - Allergies Allergies/Adverse Reactions: Allergies Allergy/AdvReac Type Severity Reaction Status Date / Time azithromycin Allergy RASH Verified 01/12/17 08:28 haloperidol [From Haldol] AdvReac RASH Verified 01/12/17 08:28 Penicillins AdvReac RASH Verified 01/12/17 08:28 pseudoephedrine AdvReac RASH Verified 01/12/17 08:28 [From Sudafed] risperidone [From Risperdal] AdvReac RASH Verified 01/12/17 08:28 Review of Systems ROS Statement: Except As Marked, All Systems Reviewed And Found Negative Constitutional: Negative for: Fever Gastrointestinal: Positive for: Nausea. Negative for: Vomiting, Diarrhea Physical Exam - Reviewed Nursing Documentation Reviewed: Yes Vital Signs Reviewed: Yes - Physical Exam Appears: Positive for: Non-toxic, No Acute Distress Head Exam: Positive for: ATRAUMATIC, NORMAL INSPECTION, NORMOCEPHALIC Skin: Positive for: Normal Color, Warm, Dry Eye Exam: Negative for: Nystagmus Neck: Positive for: Normal, Painless ROM, Supple Cardiovascular/Chest: Positive for: Regular Rate, Rhythm. Negative for: Murmur Respiratory: Positive for: CNT, Normal Breath Sounds Gastrointestinal/Abdominal: Positive for: Normal Exam, Bowel Sounds, Soft. Negative for: Tenderness Back: Positive for: Normal Inspection Extremity: Positive for: Normal ROM. Negative for: Pedal Edema, Deformity Neurologic/Psych: Positive for: Alert, freight trucker II-XII, Oriented, Cerebellar Tests. Negative for: Motor/Sensory Deficits - Laboratory Results Result Diagrams: 05/04/17 03:17 05/04/17 03:17 - ECG O2 Sat by Pulse Oximetry: 98 (RA) Pulse Ox Interpretation: Normal Medical Decision Making Medical Decision Making: Time: 3:07 nausea --Beta-HCG --CMP --CBC --Zofran --Urine C&S --Urinalysis Time: 5:30 --Patient is stable for discharge and tolerates PO. Scribe Attestation: Documented by Fantasma Vogel, acting as a scribe for Ene Roberson MD Provider Scribe Attestation: All medical record entries made by the Scribe were at my direction and personally dictated by me. I have reviewed the chart and agree that the record accurately reflects my personal performance of the history, physical exam, medical decision making, and the department course for this patient. I have also personally directed, reviewed, and agree with the discharge instructions and disposition. Disposition - Clinical Impression Clinical Impression: Nausea - Patient ED Disposition Is Patient to be Admitted: No Counseled Patient/Family Regarding: Studies Performed, Diagnosis, Need For Followup - Disposition Referrals: [facility] [Outside] [facility] [Outside] Disposition: Routine/Home Disposition Time: 04:45 Condition: IMPROVED Additional Instructions: follow up with your primary doctor in 1-2 days return to the ED with any worsening or concerning symptoms Instructions: Acute Nausea and Vomiting (ED) Forms: [facility] (Upper Sorbian)
[2017-05-04 04:07] LABS: RBC URINE 5 /hpf (0-3); WBC URINE 1 /hpf (0-5)
[2017-05-04 05:39] VITALS: BP 135/80; PULSE 75; TEMP 97.9
== END 2017-05-04 06:26 | disposition home or self-care (01) ==
LOC: H.ER 02:31
DX: R11.0 Nausea (principal); F31.9 Bipolar disorder, unspecified; F41.9 Anxiety disorder, unspecified; M06.9 Rheumatoid arthritis, unspecified; M79.7 Fibromyalgia; Z88.0 Allergy status to penicillin; F10.10 Alcohol abuse, uncomplicated
CPT/HCPCS: 80053; 81003; 81025; 84702; 85025; 87086; 96360; 99283; J2405; J7040

== ENCOUNTER 2017-08-04 18:46 | Emergency (ER) | payer MEDICAID ==
[2017-08-04] MEDS ORDERED: Midazolam 2 MG/2 ML VIAL IM ONE (19:29)
[2017-08-04] MEDS ORDERED: Midazolam 2 MG/2 ML VIAL ONE (19:42)
--- NOTE | 2017-08-04 20:27 | ED PDOC ---
HPI: Psych/Substance Abuse Time Seen by Provider: 08/04/17 19:09 Chief Complaint (Nursing): Psychiatric Evaluation Chief Complaint (Provider): Psychiatric Evaluation ED Caveat: Uncooperative History Per: EMS, Other (Police) History/Exam Limitations: other (Caveat: Uncooperative) Onset/Duration Of Symptoms: Days (x today) Additional Complaint(s): Krystal is a 47 year old female who was brought by police to the emergency department for psychiatric evaluation. As per Police, patient was throwing trash cans on the streets. Uncooperative since arrival. Refusing to answer question or participate in physical examination. PMD: No Provider Past Medical History Reviewed: Historical Data, Nursing Documentation, Vital Signs - Medical History PMH: Anxiety, Arthritis (Rheumatoid), Bipolar Disorder, Fibromyalgia Denies: Diabetes, Hepatitis, HIV, HTN, Chronic Kidney Disease, Seizures, Sexually Transmitted Disease - Surgical History Surgical History: No Surg Hx - Family History Family History: States: Unknown Family Hx, Diabetes, Hypertension - Home Medications Home Medications: Ambulatory Orders Medication Instructions Recorded Ondansetron ODT [Zofran ODT] 4 mg PO Q8 PRN #10 odt 11/11/16 Levofloxacin [Levaquin] 500 mg PO DAILY #7 tablet 11/24/16 Cyclobenzaprine [Flexeril] 5 mg PO Q8 PRN #10 tab 12/31/16 Naproxen [Naprosyn] 1 tab PO BID PRN #60 tab 12/31/16 - Allergies Allergies/Adverse Reactions: Allergies Allergy/AdvReac Type Severity Reaction Status Date / Time azithromycin Allergy RASH Verified 01/12/17 08:28 haloperidol [From Haldol] AdvReac RASH Verified 01/12/17 08:28 Penicillins AdvReac RASH Verified 01/12/17 08:28 pseudoephedrine AdvReac RASH Verified 01/12/17 08:28 [From Sudafed] risperidone [From Risperdal] AdvReac RASH Verified 01/12/17 08:28 Review of Systems Review Of Systems: ROS cannot be obtained secondary to pt's inabilty to answer questions. (Caveat: Uncooperative) Physical Exam - Reviewed Nursing Documentation Reviewed: Yes Vital Signs Reviewed: Yes - Physical Exam Appears: Negative for: Well ((+): defiant, verbally abusive) Head Exam: Positive for: ATRAUMATIC, NORMAL INSPECTION, NORMOCEPHALIC Skin: Positive for: Normal Color, Warm, Dry Eye Exam: Positive for: EOMI, Normal appearance, PERRL ENT: Positive for: Normal ENT Inspection Neck: Positive for: Normal, Painless ROM, Supple Cardiovascular/Chest: Positive for: Regular Rate, Rhythm. Negative for: Murmur Respiratory: Positive for: Normal Breath Sounds. Negative for: Respiratory Distress Gastrointestinal/Abdominal: Positive for: Normal Exam, Bowel Sounds, Soft. Negative for: Tenderness Back: Positive for: Normal Inspection Extremity: Positive for: Normal ROM. Negative for: Pedal Edema, Deformity Neurologic/Psych: Positive for: Alert, Oriented, Mood/Affect (uncooperative, agitated) - Laboratory Results Result Diagrams: 08/04/17 21:50 08/04/17 21:50 Medical Decision Making Medical Decision Making: Patient is refusing to participate physical examination. Patient is uncooperative. Time: 19:22 Impression: Bipolar Disorder Plan: - Acetaminophen - Alcohol Serum - BMP - Drug Screen, Urine - Salicylate - CBC - Versed Inj 6 mg IM - Restraint - Urinalysis Time: 2:10 --Patient has a steady gait, is awake and alert, and is stable for discharge home. Scribe Attestation: Documented by Israel Campbell and Fantasma Vogel, acting as a scribe for Ramon Eugene MD. Provider Scribe Attestation: All medical record entries made by the Scribe were at my direction and personally dictated by me. I have reviewed the chart and agree that the record accurately reflects my personal performance of the history, physical exam, medical decision making, and the department course for this patient. I have also personally directed, reviewed, and agree with the discharge instructions and disposition. Disposition - Clinical Impression Clinical Impression: Bipolar disorder - Patient ED Disposition Is Patient to be Admitted: No Counseled Patient/Family Regarding: Studies Performed, Diagnosis, Need For Followup, Rx Given - Disposition Referrals: Giovanni Alvarez MD [Family Provider] - Disposition: Routine/Home Disposition Time: 02:10 Condition: STABLE Instructions: Bipolar Disorder (ED) Forms: [employer] [facility] ([place])
[2017-08-04 21:59] LABS: BASO # 0.1 K/uL (0.0-0.2); BASO % 0.7 % (0.0-2.0); EOS # 0.3 K/uL (0.0-0.7); EOS % 2.4 % (0.0-4.0); HEMOGLOBIN 11.3 g/dL (12.0-16.0); LYMPH # 2.5 K/uL (1.0-4.3); LYMPH % 23.3 % (20.0-40.0); MEAN CELL VOLUME 92.7 fl (81.0-99.0); MEAN CORPUSCULAR HEMOGLOBIN 30.3 pg (27.0-31.0); MEAN CORPUSCULAR HGB CONC 32.7 g/dL (33.0-37.0); MEAN PLATELET VOLUME 8.1 fl (7.2-11.7); MONO # 1.1 K/uL (0.0-0.8); MONO % 9.8 % (0.0-10.0); NEUT # 6.8 K/uL (1.8-7.0); NEUT % 63.8 % (50.0-75.0); NRBC % 0.1 % (0.0-0.0); RBC 3.73 Mil/uL (3.80-5.20); RED CELL DISTRIBUTION WIDTH 13.6 % (11.5-14.5); WHITE BLOOD COUNT 10.7 K/uL (4.8-10.8)
[2017-08-04 22:17] LABS: BLOOD UREA NITROGEN 22 mg/dl (7-17); CALCIUM 9.2 mg/dL (8.4-10.2); GFR AFRICAN-AMERICAN > 60; GFR NON-AFRICAN AMERICAN > 60
[2017-08-04 22:24] LABS: ACETAMINOPHEN < 10.0 ug/ml (10.0-30.0); SALICYLATE < 1.0 mg/dl
[2017-08-05 01:34] VITALS: BP 113/69; PULSE 81; RESP 16; O2SAT 98
== END 2017-08-05 02:20 | disposition home or self-care (01) ==
LOC: H.ER 18:46
DX: F31.9 Bipolar disorder, unspecified (principal); F41.9 Anxiety disorder, unspecified; M06.9 Rheumatoid arthritis, unspecified; M79.7 Fibromyalgia; Z88.0 Allergy status to penicillin
CPT/HCPCS: 80048; 80320; 80329; 85025; 96372; 99284; J2250

== ENCOUNTER 2017-10-16 00:16 | Emergency (ER) | payer MEDICAID ==
[2017-10-16 01:08] LABS: BASO # 0.1 K/uL (0.0-0.2); BASO % 1.2 % (0.0-2.0); EOS # 0.5 K/uL (0.0-0.7); EOS % 4.7 % (0.0-4.0); HEMOGLOBIN 12.7 g/dL (12.0-16.0); LYMPH % 38.6 % (20.0-40.0); MEAN CORPUSCULAR HEMOGLOBIN 31.4 pg (27.0-31.0); MEAN CORPUSCULAR HGB CONC 33.4 g/dL (33.0-37.0); MEAN PLATELET VOLUME 9.3 fl (7.2-11.7); NEUT # 4.7 K/uL (1.8-7.0); NEUT % 45.5 % (50.0-75.0); RBC 4.05 Mil/uL (3.80-5.20); RED CELL DISTRIBUTION WIDTH 13.4 % (11.5-14.5); WHITE BLOOD COUNT 10.3 K/uL (4.8-10.8)
[2017-10-16 01:22] LABS: ALB/GLOB RATIO 1.3 (1.0-2.1); ALBUMIN 4.5 g/dL (3.5-5.0); ALT/SGPT 35 U/L (9-52); AST/SGOT 21 U/L (14-36); BLOOD UREA NITROGEN 20 mg/dl (7-17); GFR AFRICAN-AMERICAN > 60; GFR NON-AFRICAN AMERICAN > 60
--- NOTE | 2017-10-16 01:56 | ED PDOC ---
HPI: Psych/Substance Abuse Time Seen by Provider: 10/16/17 00:26 Chief Complaint (Nursing): Psychiatric Evaluation Chief Complaint (Provider): psychiatric evaluation ED Caveat: Intoxicated History/Exam Limitations: intoxication Modifying Factor(s): Alcohol Additional History Per: EMS Additional Complaint(s): 47yo female, with history of bipolar disorder (?), brought to ER by EMS for evaluation after she was found publicly intoxicated. Patient is agitated and uncooperative, unwilling to provide HPI or ROS. Past Medical History Reviewed: Historical Data, Nursing Documentation, Vital Signs - Medical History PMH: Anxiety, Arthritis (Rheumatoid), Bipolar Disorder, Fibromyalgia Denies: Diabetes, Hepatitis, HIV, HTN, Chronic Kidney Disease, Seizures, Sexually Transmitted Disease - Surgical History Surgical History: No Surg Hx - Family History Family History: States: Unknown Family Hx, Diabetes, Hypertension - Home Medications Home Medications: Ambulatory Orders Medication Instructions Recorded Ondansetron ODT [Zofran ODT] 4 mg PO Q8 PRN #10 odt 11/11/16 Levofloxacin [Levaquin] 500 mg PO DAILY #7 tablet 11/24/16 Cyclobenzaprine [Flexeril] 5 mg PO Q8 PRN #10 tab 12/31/16 Naproxen [Naprosyn] 1 tab PO BID PRN #60 tab 12/31/16 - Allergies Allergies/Adverse Reactions: Allergies Allergy/AdvReac Type Severity Reaction Status Date / Time azithromycin Allergy RASH Verified 10/16/17 00:18 haloperidol [From Haldol] AdvReac RASH Verified 10/16/17 00:18 Penicillins AdvReac RASH Verified 10/16/17 00:18 pseudoephedrine AdvReac RASH Verified 10/16/17 00:18 [From Sudafed] risperidone [From Risperdal] AdvReac RASH Verified 10/16/17 00:18 Review of Systems Review Of Systems: ROS cannot be obtained secondary to pt's inabilty to answer questions. (patient intoxicated and uncooperative) Psych: Positive for: Other (ETOH abuse) Physical Exam - Reviewed Nursing Documentation Reviewed: Yes Vital Signs Reviewed: Yes - Physical Exam Appears: Positive for: No Acute Distress Head Exam: Positive for: ATRAUMATIC, NORMAL INSPECTION, NORMOCEPHALIC Skin: Positive for: Normal Color Neck: Positive for: Supple Cardiovascular/Chest: Positive for: Regular Rate, Rhythm Respiratory: Positive for: Normal Breath Sounds. Negative for: Respiratory Distress Neurologic/Psych: Positive for: Gait (unsteady), Other (slurred speech) - Laboratory Results Result Diagrams: 10/16/17 00:55 10/16/17 00:55 - Critical Care Total Time (In Min): 30 Documented Critical Care: Time excludes all time spent performint seperately billable procedures Medical Decision Making Medical Decision Making: Impression: 47yo female, brought for evaluation of alcohol intoxication Plan: -- Due to patient's agitated state and possibility for harm to self and staff, patient to be placed in 4 point restraints. -- Geodon 20mg IM -- Ativan 2mg IM -- Urine drug screen Time: 204 Restraints removed as patient is calm and cooperative. Time: 643 Labs reviewed and within normal limits. Time: 699 Patient to be signed out to Dr. Crespo pending crisis evaluation, clinical sobriety and disposition. Scribe Attestation: Documented by Vanessa Saldaña acting as a scribe for Valentino Acosta MD. Provider Attestation: All medical record entries made by the Scribe were at my direction and personally dictated by me. I have reviewed the chart and agree that the record accurately reflects my personal performance of the history, physical exam, medical decision making, and the department course for this patient. I have also personally directed, reviewed, and agree with the discharge instructions and disposition. Disposition - Clinical Impression Clinical Impression: Bipolar disorder - Disposition Referrals: [facility] [Outside] Disposition Time: 07:00 Condition: STABLE Instructions: Bipolar Disorder Forms: [facility] (Czech) Patient Signed Over To: Radha Crespo
[2017-10-16 03:28] LABS: BARBITURATES, UR NEGATIVE (NEGATIVE); BENZODIAZEPINES, UR NEGATIVE (NEGATIVE); OPIATES, UR NEGATIVE (NEGATIVE); PHENCYCLIDINE, UR NEGATIVE (NEGATIVE)
[2017-10-16 08:14] VITALS: O2SAT 98
[2017-10-16] MEDS ORDERED: Sod Polystyrene Sulf 15 gm/60 ml Susp PO STA (10:19)
--- NOTE | 2017-10-16 10:22 | ED PDOC ---
- Laboratory Results Result Diagrams: 10/16/17 00:55 10/16/17 00:55 - ECG O2 Sat by Pulse Oximetry: 98 - Progress ED Course And Treament: Pt sleeping comfortably. Re-evaluation Time: 09:00 Medical Decision Making Medical Decision Making: Pt cleared by Crisis, dx bipolar disorder. Disposition - Clinical Impression Clinical Impression: Bipolar disorder - POA Present On Arrival: None - Disposition Referrals: [facility] [Outside] Disposition: Routine/Home Disposition Time: 10:21 Condition: STABLE Instructions: Bipolar Disorder Forms: [facility] (French) Addendum Addendum: 10/16/17 07:[address] Pt signed out by [address] Acosta pending Crisis evaluation.
[2017-10-16 10:35] VITALS: BP 107/68; PULSE 87; RESP 18; TEMP 98
== END 2017-10-16 10:35 | disposition home or self-care (01) ==
LOC: H.ER 00:16
DX: F31.9 Bipolar disorder, unspecified (principal); F10.129 Alcohol abuse with intoxication, unspecified; F41.9 Anxiety disorder, unspecified; M06.9 Rheumatoid arthritis, unspecified; M79.7 Fibromyalgia; Z88.0 Allergy status to penicillin
CPT/HCPCS: 80053; 80320; 80324; 80345; 80346; 80349; 80353; 80358; 80361; 82948; 83992; 85025; 96372; 99285; J2060; J3486

== ENCOUNTER 2018-01-19 11:06 | Emergency (ER) | payer MEDICAID ==
[2018-01-19 11:17] VITALS: BP 118/77; PULSE 80; RESP 16; TEMP 97.5
--- NOTE | 2018-01-19 11:51 | ED PDOC ---
HPI: General Adult Time Seen by Provider: 01/19/18 11:15 Chief Complaint (Nursing): Medical Clearance Chief Complaint (Provider): Medical Clearance History Per: Patient History/Exam Limitations: no limitations Onset/Duration Of Symptoms: Hrs Current Symptoms Are (Timing): Still Present Additional Complaint(s): 47 y/o female with a PMHx of EtOH abuse and Bipolar Disorder is under arrest trespassing and brought in by police for medical and psychiatric clearance. Police report that the patient is refusing to answer questions. Patient states "I'm not crazy. Everyone else around me is conspiring and crazy." pt states she feels fine. no pain. PMD: Unable to Obtain Past Medical History Reviewed: Historical Data, Nursing Documentation, Vital Signs Vital Signs: Last Vital Signs Temp 97.5 F L 01/19/18 11:11 Pulse 80 01/19/18 11:11 Resp 16 01/19/18 11:11 BP 118/77 01/19/18 11:11 Pulse Ox - Medical History PMH: Anxiety, Arthritis (Rheumatoid), Bipolar Disorder, Bronchitis, Fibromyalgia Denies: Diabetes, Hepatitis, HIV, HTN, Chronic Kidney Disease, Seizures, Sexually Transmitted Disease - Surgical History Surgical History: No Surg Hx - Family History Family History: States: Unknown Family Hx, Diabetes, Hypertension - Home Medications Home Medications: Ambulatory Orders Medication Instructions Recorded Ondansetron ODT [Zofran ODT] 4 mg PO Q8 PRN #10 odt 11/11/16 Levofloxacin [Levaquin] 500 mg PO DAILY #7 tablet 11/24/16 Cyclobenzaprine [Flexeril] 5 mg PO Q8 PRN #10 tab 12/31/16 Naproxen [Naprosyn] 1 tab PO BID PRN #60 tab 12/31/16 - Allergies Allergies/Adverse Reactions: Allergies Allergy/AdvReac Type Severity Reaction Status Date / Time azithromycin Allergy RASH Verified 10/16/17 00:18 haloperidol [From Haldol] AdvReac RASH Verified 10/16/17 00:18 Penicillins AdvReac RASH Verified 10/16/17 00:18 pseudoephedrine AdvReac RASH Verified 10/16/17 00:18 [From Sudafed] risperidone [From Risperdal] AdvReac RASH Verified 10/16/17 00:18 Review of Systems ROS Statement: Except As Marked, All Systems Reviewed And Found Negative Constitutional: Positive for: Other (medical clearance) Psych: Positive for: Other (psychiatric clearance) Physical Exam - Reviewed Nursing Documentation Reviewed: Yes Vital Signs Reviewed: Yes - Physical Exam Appears: Positive for: No Acute Distress Head Exam: Positive for: ATRAUMATIC, NORMAL INSPECTION, NORMOCEPHALIC Skin: Positive for: Normal Color, Warm, Dry Eye Exam: Positive for: EOMI, Normal appearance, PERRL ENT: Positive for: Normal ENT Inspection Neck: Positive for: Normal Cardiovascular/Chest: Positive for: Regular Rate, Rhythm Respiratory: Positive for: CNT, Normal Breath Sounds Gastrointestinal/Abdominal: Positive for: Normal Exam, Soft. Negative for: Tenderness Extremity: Positive for: Normal ROM Neurologic/Psych: Positive for: Alert, Oriented. Negative for: Motor/Sensory Deficits Medical Decision Making Medical Decision Making: Time: 1143 Plan: clearnace for incarceration -- Acetaminophen -- Alcohol Serum -- BMP -- Urine Drug Screen -- Salicylate -- CBC with differentials -- Urinalysis \\pt iwth normal exam. pt speaks intermittantly, states she doesnt want to talk to us. vitals stable, 02 sat 100 percent on room air. Time: 1401 -- Patient refused to give blood work and urine. but pt resting comfortably in no distress. airway intact. pt cleared by crisis with diagnosis of bipolar as per Dr Price the psych. customer liaison. -- Patient medically and psychiatrically cleared for incarceration. Scribe Attestation: Documented by Doug Li acting as a scribe for Dr. Ene Roberson MD. Provider Scribe Attestation: All medical record entries made by the Scribe were at my direction and personally dictated by me. I have reviewed the chart and agree that the record accurately reflects my personal performance of the history, physical exam, medical decision making, and the department course for this patient. I have also personally directed, reviewed, and agree with the discharge instructions and disposition. Disposition - Clinical Impression Clinical Impression: Bipolar disorder - Patient ED Disposition Is Patient to be Admitted: No Counseled Patient/Family Regarding: Studies Performed, Diagnosis, Need For Followup - Disposition Disposition: Routine/Home Disposition Time: 13:45 Condition: IMPROVED Additional Instructions: follow up as an outpatient with your primary doctor return to the ED with any worsening or concerning symptoms patient is medically and psychiatrically cleared for incarceration Instructions: Bipolar Disorder (DC)
== END 2018-01-19 14:33 ==
LOC: H.ER 11:06
DX: F31.9 Bipolar disorder, unspecified (principal); F41.9 Anxiety disorder, unspecified; M06.9 Rheumatoid arthritis, unspecified; M79.7 Fibromyalgia; Z88.0 Allergy status to penicillin

== ENCOUNTER 2018-02-22 22:59 | Emergency (ER) | payer SELFPAY ==
[2018-02-22 23:01] VITALS: BMI 22.7
[2018-02-22 23:06] VITALS: O2SAT 97
[2018-02-23 00:21] LABS: BASO # 0.1 K/uL (0.0-0.2); BASO % 1.2 % (0.0-2.0); EOS # 0.1 K/uL (0.0-0.7); EOS % 0.8 % (0.0-4.0); HEMOGLOBIN 10.9 g/dL (12.0-16.0); LYMPH # 2.2 K/uL (1.0-4.3); LYMPH % 25.5 % (20.0-40.0); MEAN CELL VOLUME 92.6 fl (81.0-99.0); MEAN CORPUSCULAR HEMOGLOBIN 31.6 pg (27.0-31.0); MEAN CORPUSCULAR HGB CONC 34.2 g/dL (33.0-37.0); MEAN PLATELET VOLUME 9.2 fl (7.2-11.7); MONO # 1.3 K/uL (0.0-0.8); MONO % 14.9 % (0.0-10.0); NEUT % 57.6 % (50.0-75.0); NRBC % 0.1 % (0.0-0.0); RBC 3.44 Mil/uL (3.80-5.20); RED CELL DISTRIBUTION WIDTH 12.9 % (11.5-14.5); WHITE BLOOD COUNT 8.6 K/uL (4.8-10.8)
--- NOTE | 2018-02-23 00:22 | ED PDOC ---
- Laboratory Results Result Diagrams: 02/23/18 00:01 02/23/18 09:32 - ECG O2 Sat by Pulse Oximetry: 97 Medical Decision Making Medical Decision Making: Pt is unknown female, brought in by [place] PD/EMS. Pt was found running in traffic, shouting, and not cooperative with PD/EMS. On evaluation, pt is speaking "to my father" with no one in the room. When asked her name she shouts profanities. PT resisted vital signs being taken in triage and was kicking, swinging her arms, and thrashing when attempt to talk to her bedside. Per EMS/PD, pt was violent towards them requiring them to restrain her. Pt to be medically sedated and chemically restrained until is no longer unsafe to herself or staff. Pt to be signed out to Dr. Acosta. Disposition - Clinical Impression Clinical Impression: Bipolar disorder - POA Present On Arrival: None - Disposition Referrals: [facility] [Outside] Disposition: Transfer of Care Disposition Time: 00:00 (Medically sedated. Pending labs and re-evaluation. Crisis evaluation pending.) Condition: GUARDED Additional Instructions: Follow up with your PCP in 4-5 days. Instructions: Bipolar Disorder
[2018-02-23 00:29] LABS: BLOOD UREA NITROGEN 14 mg/dl (7-17); CALCIUM 9.2 mg/dL (8.4-10.2); GFR NON-AFRICAN AMERICAN > 60
--- NOTE | 2018-02-23 00:56 | ED PDOC ---
HPI: Psych/Substance Abuse Time Seen by Provider: 02/22/18 23:08 Chief Complaint (Nursing): Psychiatric Evaluation Chief Complaint (Provider): Psychiatric Evaluation ED Caveat: Intoxicated, Uncooperative History Per: EMS History/Exam Limitations: intoxication Onset/Duration Of Symptoms: Hrs Current Symptoms Are (Timing): Still Present Additional Complaint(s): Ellen Johns is an unknown female brought to ED by [place] PD and EMS for psychiatric evaluation. Patient had no ID on her person and is combative by reports of EMS and is combative in ED. Per EMS/PD, patient was found in [place] and speaking to herself incoherently. A bystander at the scene called the police. She presented to the ED shouting profanities, kicking and screaming. In room, she was noted to be speaking to her father even when no one else was in the room. PMD: unknown Past Medical History Reviewed: Historical Data, Nursing Documentation, Vital Signs, Unable To Obtain Vital Signs: Last Vital Signs Temp 99.6 F 02/22/18 23:01 Pulse 111 H 02/22/18 23:01 Resp 16 02/22/18 23:01 BP Pulse Ox 97 02/23/18 00:22 - Family History Family History: States: Unknown Family Hx - Home Medications Home Medications: Ambulatory Orders Medication Instructions Recorded Ondansetron ODT [Zofran ODT] 4 mg PO Q8 PRN #10 odt 11/11/16 Levofloxacin [Levaquin] 500 mg PO DAILY #7 tablet 11/24/16 Cyclobenzaprine [Flexeril] 5 mg PO Q8 PRN #10 tab 12/31/16 Naproxen [Naprosyn] 1 tab PO BID PRN #60 tab 12/31/16 Unobtainable 02/23/18 - Allergies Allergies/Adverse Reactions: Allergies Allergy/AdvReac Type Severity Reaction Status Date / Time azithromycin Allergy RASH Verified 10/16/17 00:18 haloperidol [From Haldol] AdvReac RASH Verified 10/16/17 00:18 Penicillins AdvReac RASH Verified 10/16/17 00:18 pseudoephedrine AdvReac RASH Verified 10/16/17 00:18 [From Sudafed] risperidone [From Risperdal] AdvReac RASH Verified 04/15/18 00:18 Review of Systems ROS Statement: Except As Marked, All Systems Reviewed And Found Negative Review Of Systems: ROS cannot be obtained secondary to pt's inabilty to answer questions. Physical Exam - Reviewed Nursing Documentation Reviewed: Yes Vital Signs Reviewed: Yes - Physical Exam Appears: Positive for: Uncomfortable (patient appears disheveled and exam is unable to be completed as patient is kicking and screaming) - Laboratory Results Result Diagrams: 02/23/18 00:01 02/23/18 09:32 - ECG O2 Sat by Pulse Oximetry: 97 (RA) Pulse Ox Interpretation: Normal Medical Decision Making Medical Decision Making: Time: 23:08 Impression: unknown female, EDP --Patient will require chemical sedation and physical restraint. --Patient put on 1:1 and extrusion manager Will draw labs when safe and reevaluate patient. 00:00 Patient signed out to Dr. Acosta pending labs and reevaluation. Scribe Attestation: Documented by Andressa Lora, acting as a scribe for Yumiko Cronin MD. Provider Scribe Attestation: All medical record entries made by the Scribe were at my direction and personally dictated by me. I have reviewed the chart and agree that the record accurately reflects my personal performance of the history, physical exam, medical decision making, and the department course for this patient. I have also personally directed, reviewed, and agree with the discharge instructions and disposition. Disposition - Clinical Impression Clinical Impression: Bipolar disorder - Disposition Referrals: [facility] [Outside] Disposition Time: 00:00 Condition: GUARDED Additional Instructions: Follow up with your PCP in 4-5 days. Instructions: Bipolar Disorder
--- NOTE | 2018-02-23 01:01 | ED PDOC ---
- Laboratory Results Result Diagrams: 02/23/18 00:01 02/23/18 00:01 - ECG O2 Sat by Pulse Oximetry: 97 (RA) Pulse Ox Interpretation: Normal Medical Decision Making Medical Decision Making: Time: 00:00 Patient signed out to me by Dr. Cronin pending labs, crisis evaluation, and reevaluation. 7:00 Patient will be signed out to Dr. Morales pending crisis evaluation and reevaluation. Scribe Attestation: Documented by Andressa Lora, acting as a scribe for Yumiko Cronin MD. Provider Scribe Attestation: All medical record entries made by the Scribe were at my direction and personally dictated by me. I have reviewed the chart and agree that the record accurately reflects my personal performance of the history, physical exam, medical decision making, and the department course for this patient. I have also personally directed, reviewed, and agree with the discharge instructions and disposition. Disposition - Disposition Forms: [employer] (Malian)
[2018-02-23] MEDS ORDERED: Potassium Chloride 20 mEq ER Tab PO ONE ×3 (07:10→07:27)
[2018-02-23] MEDS ORDERED: Potassium CL 10 MEQ/50 ML 50 ML IVPB ONE (07:10)
--- NOTE | 2018-02-23 07:10 | ED PDOC ---
- Laboratory Results Result Diagrams: 02/23/18 00:01 02/23/18 09:32 - ECG O2 Sat by Pulse Oximetry: 97 (RA) Pulse Ox Interpretation: Normal - Progress Re-evaluation Time: 11:00 Condition: Re-examined, Improved Medical Decision Making Medical Decision Making: Time: 0700 --Patient endorsed to this provider by Dr. Acosta, pending crisis evaluation and reevaluation. 1100 Patient is cleared for discharge by Dr Preston Scribe Attestation: Documented by Sho Pacheco, acting as a scribe for Thomas Morales MD Provider Scribe Attestation: All medical record entries made by the Scribe were at my direction and personally dictated by me. I have reviewed the chart and agree that the record accurately reflects my personal performance of the history, physical exam, medical decision making, and the department course for this patient. I have also personally directed, reviewed, and agree with the discharge instructions and disposition. Disposition - Clinical Impression Clinical Impression: Bipolar disorder - POA Present On Arrival: None - Disposition Referrals: [facility] [Outside] Disposition: Routine/Home Disposition Time: 11:00 Condition: IMPROVED Additional Instructions: Follow up with your PCP in 4-5 days. Instructions: Bipolar Disorder
[2018-02-23] MEDS ORDERED: Potassium CL 10 MEQ/50 ML 50 ML ONE (07:21)
[2018-02-23 08:34] VITALS: BP 111/65; PULSE 71; RESP 15; TEMP 98
--- NOTE | 2018-02-23 15:34 | CARD ---
APPROVED REPORT Date of service: 02/23/2018 EKG Measurement Heart [id number] <Conclusion> Normal sinus rhythm septal infarct, age undetermined prolonged QT Abnormal ECG
== END 2018-02-23 11:20 | disposition home or self-care (01) ==
LOC: MERGE 22:59 → EDBD 22:59 → H.ER 22:59
DX: F31.9 Bipolar disorder, unspecified (principal); Z88.0 Allergy status to penicillin
CPT/HCPCS: 80048; 82948; 84132; 84703; 85025; 93005; 96372; 99285; G0480; J1630; J2060; J3480

== ENCOUNTER 2018-09-15 14:32 | Emergency (ER) | payer MEDICAID ==
[2018-09-15 14:32] VITALS: BMI 22.7
[2018-09-15 14:40] VITALS: BP 139/102; PULSE 98; RESP 18; O2SAT 98
--- NOTE | 2018-09-15 15:06 | ED PDOC ---
HPI: Psych/Substance Abuse Time Seen by Provider: 09/15/18 14:44 Chief Complaint (Nursing): Psychiatric Evaluation Chief Complaint (Provider): Psychiatric Evaluation ED Caveat: Uncooperative History Per: Patient, EMS History/Exam Limitations: no limitations Onset/Duration Of Symptoms: Hrs Current Symptoms Are (Timing): Still Present Additional Complaint(s): 48 year old female with a past medical history of anxiety and bipolar disorder (obtained from previous chart review), who was brought to the ED via EMS after erratic and agitated behavior. Patient was found [place]. In the ER, she is uncooperative and refusing to answer questions with poor insight and agitation. Prior charts reviewed which showed prior psychiatric visits with reports of alcohol abuse but frequently negative etoh levels. Further history is otherwise limited or unobtainable. PMD: none provided Past Medical History Reviewed: Historical Data, Nursing Documentation, Vital Signs, Unable To Obtain Vital Signs: Last Vital Signs Temp Pulse 98 H 09/15/18 14:36 Resp 18 09/15/18 14:36 BP 139/102 H 09/15/18 14:36 Pulse Ox 98 09/15/18 14:36 - Medical History PMH: Anxiety, Arthritis (Rheumatoid), Bipolar Disorder, Bronchitis, Fibromyalgia Denies: Diabetes, Hepatitis, HIV, HTN, Chronic Kidney Disease, Seizures, Sexually Transmitted Disease - Family History Family History: States: Unknown Family Hx, Diabetes, Hypertension - Home Medications Home Medications: Ambulatory Orders Medication Instructions Recorded Ondansetron ODT [Zofran ODT] 4 mg PO Q8 PRN #10 odt 11/11/16 Levofloxacin [Levaquin] 500 mg PO DAILY #7 tablet 11/24/16 Cyclobenzaprine [Flexeril] 5 mg PO Q8 PRN #10 tab 12/31/16 Naproxen [Naprosyn] 1 tab PO BID PRN #60 tab 12/31/16 Unobtainable 02/23/18 - Allergies Allergies/Adverse Reactions: Allergies Allergy/AdvReac Type Severity Reaction Status Date / Time azithromycin Allergy RASH Verified 09/15/18 14:36 haloperidol [From Haldol] AdvReac RASH Verified 09/15/18 14:36 Penicillins AdvReac RASH Verified 09/15/18 14:36 pseudoephedrine AdvReac RASH Verified 09/15/18 14:36 [From Sudafed] risperidone [From Risperdal] AdvReac RASH Verified 09/15/18 14:36 Review of Systems ROS Statement: Except As Marked, All Systems Reviewed And Found Negative Review Of Systems: ROS cannot be obtained secondary to pt's inabilty to answer questions. (uncooperative patient) Physical Exam - Reviewed Nursing Documentation Reviewed: Yes Vital Signs Reviewed: Yes - Physical Exam Appears: Positive for: Non-toxic, No Acute Distress (poor hygiene; patient refused much of physical exam ) Head Exam: Positive for: ATRAUMATIC Skin: Positive for: Normal Color Eye Exam: Positive for: Normal appearance Neurological/Psych: Positive for: Awake, Alert, Mood/Affect (labile mood), Other (clear but pressured speech ) - ECG O2 Sat by Pulse Oximetry: 98 (RA) Pulse Ox Interpretation: Normal Medical Decision Making Medical Decision Making: Time: 14:44 Plan: --Alcohol serum --CMP --Urine Drug Screen --Magnesium --Troponin --CBC --Geodon 10 mg IM --1:1 Observation --Glucose, Blood, POC --Urinalysis patient required relief of agitation with medication due to agitation, inability to make appropriate decisions with poor insight. Scribe Attestation: Documented by Andressa Lora, acting as a scribe for Isauro Villa DO. Provider Scribe Attestation: All medical record entries made by the Scribe were at my direction and personally dictated by me. I have reviewed the chart and agree that the record accurately reflects my personal performance of the history, physical exam, medical decision making, and the department course for this patient. I have also personally directed, reviewed, and agree with the discharge instructions and disposition. Disposition - Clinical Impression Clinical Impression: Agitation - Patient ED Disposition Is Patient to be Admitted: Transfer of Care - Disposition Disposition: Transfer of Care Disposition Time: 15:00 Condition: FAIR Forms: [employer] (Portuguese) Patient Signed Over To: Thomas Morales Handoff Comments: pending labs and crisis eval, dispo
--- NOTE | 2018-09-15 15:31 | ED PDOC ---
- Laboratory Results Result Diagrams: 09/15/18 17:20 09/15/18 17:20 - ECG O2 Sat by Pulse Oximetry: 98 (RA) Pulse Ox Interpretation: Normal Medical Decision Making Medical Decision Making: Time: 15:00 Patient was endorsed to me by Dr. Villa pending labs and psychiatric disposition. Patient was evaluated at bedside: She has stable vitals and is resting. Patient is calm at this time. 2200 Patient has been cleared for discharge by psychiatry. Scribe Attestation: Documented by Andressa Lora, acting as a scribe for Thomas Morales MD Provider Scribe Attestation: All medical record entries made by the Scribe were at my direction and personally dictated by me. I have reviewed the chart and agree that the record accurately reflects my personal performance of the history, physical exam, medical decision making, and the department course for this patient. I have also personally directed, reviewed, and agree with the discharge instructions and disposition. Disposition Counseled Patient/Family Regarding: Studies Performed, Diagnosis - Clinical Impression Clinical Impression: Agitation, Mood disorder - POA Present On Arrival: None - Disposition Referrals: [facility] [Outside] Disposition: Routine/Home Disposition Time: 22:00 Condition: GOOD Instructions: Stress
[2018-09-15 17:42] LABS: BASO # 0.1 K/uL (0.0-0.2); BASO % 1.5 % (0.0-2.0); EOS # 0.2 K/uL (0.0-0.7); EOS % 3.2 % (0.0-4.0); HEMOGLOBIN 11.6 g/dL (12.0-16.0); LYMPH # 2.6 K/uL (1.0-4.3); LYMPH % 34.2 % (20.0-40.0); MEAN CELL VOLUME 94.3 fl (81.0-99.0); MEAN CORPUSCULAR HEMOGLOBIN 31.8 pg (27.0-31.0); MEAN CORPUSCULAR HGB CONC 33.7 g/dL (33.0-37.0); MEAN PLATELET VOLUME 8.1 fl (7.2-11.7); MONO # 0.9 K/uL (0.0-0.8); MONO % 11.7 % (0.0-10.0); NEUT # 3.8 K/uL (1.8-7.0); NEUT % 49.4 % (50.0-75.0); NRBC % 0.1 % (0.0-0.0); RBC 3.64 Mil/uL (3.80-5.20); RED CELL DISTRIBUTION WIDTH 13.7 % (11.5-14.5); WHITE BLOOD COUNT 7.7 K/uL (4.8-10.8)
[2018-09-15 17:50] LABS: ALB/GLOB RATIO 1.3 (1.0-2.1); ALBUMIN 4.1 g/dL (3.5-5.0); ALT/SGPT 22 U/L (9-52); AST/SGOT 24 U/L (14-36); BLOOD UREA NITROGEN 14 mg/dl (7-17); CALCIUM 9.7 mg/dL (8.4-10.2); GFR NON-AFRICAN AMERICAN > 60
== END 2018-09-15 23:05 | disposition home or self-care (01) ==
LOC: H.ER 14:32
DX: F39 Unspecified mood [affective] disorder (principal)
CPT/HCPCS: 80053; 80320; 81025; 82948; 83735; 84484; 85025; 96372; 99283; J3486